=== PATIENT | male | born 1990 | race Caucasian/White ===

== ENCOUNTER 2021-03-25 08:43 | Emergency (ER) | payer OTHER ==
[2021-03-25] MEDS ORDERED: Ketorolac 15 MG/ML SDV IM ONE (09:27)
[2021-03-25] MEDS ORDERED: Famotidine 20 MG/2 ML SDV IVPUSH PRN (10:51)
[2021-03-25] MEDS ORDERED: diphenhydrAMINE 50 MG/ML SDV IVPUSH PRN (10:51)
[2021-03-25] MEDS ORDERED: EPINEPHrine 1 MG/ML SDV IM PRN (10:51)
[2021-03-25] MEDS ORDERED: methylPREDNISolone Sodium Succinate 125 MG/2 ML SDV IVPUSH PRN (10:51)
[2021-03-25] MEDS ORDERED: Sodium Chloride 0.9% 10 ML Syringe FLUSH SCH (11:00)
== END 2021-03-25 11:29 | disposition home or self-care (01) ==
LOC: JD.ED 08:43
DX: U07.1 COVID-19 (principal); J12.82 Pneumonia due to coronavirus disease 2019; Z88.0 Allergy status to penicillin; Z88.2 Allergy status to sulfonamides; Z86.16 Personal history of COVID-19
CPT/HCPCS: 36415; 80053; 85025; 85379; 85610; 86140; 96372; 99283; J1885; 99285